=== PATIENT | male | born 1975 | race Caucasian/White ===

== ENCOUNTER 2020-06-28 00:53 | Emergency (ER) | payer BC ==
[2020-06-28] MEDS ORDERED: HYDROmorphone 1 MG/ML Syringe IVPUSH ONE (01:18)
[2020-06-28] MEDS ORDERED: Ondansetron 4 MG/2 ML SDV IVPUSH ONE (01:18)
--- NOTE | 2020-06-28 01:21 | EDM.PDOC ---
ED HPI GENERAL MEDICAL PROBLEM - General Chief Complaint: Flank Pain Stated Complaint: kidney stone issues Time Seen by Provider: 06/28/20 01:03 Source of Information: Reports: Patient History Limitations: Reports: No Limitations - History of Present Illness INITIAL COMMENTS - FREE TEXT/NARRATIVE: Mr. Sheikh is a pleasant 44-year-old gentleman with a past medical history significant for kidney stones, who now presents to the ED stating that he developed right flank pain radiating to his right groin around 12:30 yesterday afternoon, , 06/27/2020. He describes the character of the pain to his right flank as "constant" and states that the pain to his right groin comes and goes. He noticed gross hematuria around 13:00, but states that it seems to have improved since then. He has had nausea since 18:00 last evening, and states that he vomited once. He states that his current symptoms are very similar to prior kidney stones. Here in the ED, the patient's initial BP is found to be elevated at 159/105, otherwise, he is hemodynamically stable, afebrile, saturating 99% on room air. Prior to yesterday afternoon, the patient denies having a recent fever, chills, sore throat, ear pain, nasal or sinus congestion, cough, dyspnea, chest pain, palpitations, nausea, vomiting, constipation, diarrhea, abdominal pain, urinary symptoms, recent weight gain or weight loss, recent bloody bowel movements or black bowel movements, recent joint aches, headaches, or rashes. The patient's PCP is Dr. Ramos Padilla. He has not received an influenza vaccine this season, and declined an offer to receive one here in the ED. Right Flank Pain Score (Numeric/FACES): 7 - Related Data Allergies Allergy/AdvReac Type Severity Reaction Status Date / Time No Known Allergies Allergy Verified 06/28/20 01:12 Home Meds: Home Meds Acetaminophen/HYDROcodone [Rawson 325-5 MG] 1 - 2 tab PO Q6H PRN #20 tablet 06/28/20 [Rx] Ondansetron [Zofran ODT] 1 tab PO Q8H PRN #10 tab.dis 06/28/20 [Rx] Tamsulosin HCl [Flomax] 1 cap PO QAM PRN #10 cap.er.24h 06/28/20 [Rx] atorvaSTATin [Lipitor] 20 mg PO BEDTIME 06/28/20 [History] Past Medical History Cardiovascular History: Reports: High Cholesterol Genitourinary History: Reports: Renal Calculus Endocrine/Metabolic History: Reports: Obesity/BMI 30+ - Infectious Disease History Infectious Disease History: Reports: Chicken Pox, Shingles - Past Surgical History HEENT Surgical History: Reports: Oral Surgery (dental extractions) Male Surgical History: Reports: Kidney Stone Extraction (x 1), Ureteral Stent (x 1) Musculoskeletal Surgical History: Reports: Other (See Below) (Left hand tendon repair. 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 ED EXAM, RENAL/ - Physical Exam Exam: See Below Exam Limited By: No Limitations General Appearance: Alert, WD/WN, Mild Distress (appears uncomfortable) Eye Exam: Bilateral Eye: EOMI, Normal Inspection Ears: Normal External Exam, Hearing Grossly Normal Nose: Normal Inspection Throat/Mouth: Normal Inspection, Normal Lips, Normal Voice, No Airway Compromise Head: Atraumatic, Normocephalic Neck: Normal Inspection, Full Range of Motion Respiratory/Chest: No Respiratory Distress, Lungs Clear, Normal Breath Sounds, No Accessory Muscle Use Cardiovascular: Normal Peripheral Pulses, Regular Rate, Rhythm, No Edema, No Gallop, No JVD, No Murmur, No Rub GI/Abdominal: Normal Bowel Sounds, Soft, Non-Tender (including the right side), No Organomegaly, No Distention, No Abnormal Bruit, No Mass Back Exam: Normal Inspection, Full Range of Motion. No: CVA Tenderness (L), CVA Tenderness (R) Extremities: Normal Inspection, Normal Range of Motion, No Pedal Edema, Normal Capillary Refill Neurological: Alert, Oriented, Normal Cognition, No Motor/Sensory Deficits Psychiatric: Normal Affect Skin Exam: Warm, Dry, Intact, Normal Color, No Rash Course - Vital Signs Last Recorded V/S: Last Vital Signs Temp 36.2 C 06/28/20 00:59 Pulse 95 06/28/20 00:59 Resp 20 06/28/20 00:59 BP 159/105 H 06/28/20 00:59 Pulse Ox 99 06/28/20 00:59 - Orders/Labs/Meds Orders: Active Orders 24 hr Category Date Time Status Abdomen Pelvis wo Cont [CT] Stat Exams 06/28/20 01:17 Taken Sodium Chloride 0.9% [Normal Saline] 1,000 ml Med 06/28/20 01:30 Active IV ASDIRECTED Medication Orders Sodium Chloride (Normal Saline) 1,000 mls @ 150 mls/hr IV ASDIRECTED SWETA Last Admin: 06/28/20 01:31 Dose: 150 mls/hr Documented by: SKINNY Labs: Laboratory Tests 06/28/20 Range/Units 04:05 Urine Color Yellow (Yellow) Urine Appearance Clear (Clear) Urine pH 5.5 (5.0-8.0) Ur Specific [place] > or = 1.030 (1.005-1.030) Urine Protein Trace H (Negative) Urine Glucose (UA) Negative (Negative) Urine Ketones Negative (Negative) Urine Occult Blood 3+ H (Negative) Urine Nitrite Negative (Negative) Urine Bilirubin Negative (Negative) Urine Urobilinogen 0.2 (0.2-1.0) Ur Leukocyte Esterase Negative (Negative) Urine RBC 10-20 H (0-5) /hpf Urine WBC 0-5 (0-5) /hpf Ur Squamous Epith Cells 0-5 (0-5) /hpf Urine Bacteria Few (FEW) /hpf Urine Mucus Few (FEW) /hpf Meds: Medications Generic Name Dose Route Start Last Admin Trade Name Freq PRN Reason Stop Dose Admin Sodium Chloride 1,000 mls @ 150 mls/hr 06/28/20 01:30 06/28/20 01:31 Normal Saline IV 150 mls/hr ASDIRECTED SWETA Administration Discontinued Medications Generic Name Dose Route Start Last Admin Trade Name Freq PRN Reason Stop Dose Admin Hydromorphone HCl 1 mg 06/28/20 01:18 06/28/20 01:32 Dilaudid IVPUSH 06/28/20 01:19 1 mg ONETIME ONE Administration Ondansetron HCl 4 mg 06/28/20 01:18 06/28/20 01:31 Zofran IVPUSH 06/28/20 01:19 4 mg ONETIME ONE Administration - Re-Assessments/Exams Free Text/Narrative Re-Assessment/Exam: 06/28/20 01:19 Although the patient's physical exam is unremarkable, his history is consistent with a right ureterolith. I have therefore ordered a urinalysis by clean-catch and a CT of the abdomen and pelvis without contrast. In the meantime, the patient will be given IV Dilaudid, IV Zofran, and IV fluid. 06/28/20 02:15 CT of the abdomen and pelvis without contrast is read by [facility] as "Bilateral nephrolithiasis. Mild right hydronephrosis and hydroureter with an obstructing 3 mm stone in the UVJ." The patient has not yet provided a urine sample. 06/28/20 04:25 The patient's urinalysis is remarkable for 3+ occult blood with 10-20 RBCs, and is otherwise unremarkable. 06/28/20 04:31 Test results discussed with the patient. I will discharge him home with prescriptions for the Rawson, Zofran, and Flomax. He will be given a urine strainer. He should stay adequately hydrated. I will refer him to a Urologist in the event that he does not pass the stone within the next couple weeks, however, given its size and location, he will likely pass it fairly soon. Departure - Departure Time of Disposition: 04:32 Disposition: Home, Self-Care 01 Condition: Good Clinical Impression: Ureterolithiasis - Discharge Information *PRESCRIPTION DRUG MONITORING PROGRAM REVIEWED*: Not Applicable *COPY OF PRESCRIPTION DRUG MONITORING REPORT IN PATIENT FERNANDEZ: Not Applicable Prescriptions: Tamsulosin HCl [Flomax] 1 cap PO QAM PRN #10 cap.er.24h PRN Reason: Pain Acetaminophen/HYDROcodone [Rawson 325-5 MG] 1 - 2 tab PO Q6H PRN #20 tablet PRN Reason: Pain (Severe 7-10) Ondansetron [Zofran ODT] 1 tab PO Q8H PRN #10 tab.dis PRN Reason: Nausea/Vomiting Referrals: Ramos Padilla MD [Primary Care Provider] - Vu Crisostomo MD [Ordering Only Provider] - Forms: ED Department Discharge Additional Instructions: You were seen in the emergency room after developing right flank pain with radiation to your right groin, along with nausea and vomiting. Work-up in the ER included a urinalysis and a CT of your abdomen and pelvis. Your CT confirmed that you have a 3 mm stone in your distal right ureter, just at your bladder. You do not have an associated urinary tract infection. Based on the size and location of your stone, you will most likely pass it within the next few days. We recommend that you take [id number] ibuprofen, 3 tablets (600 mg) up to every 8 hours, with food, [id number]. You may take 1 to 2 tablets of the prescription opioid Rawson up to every 6 hours, as needed for pain not relieved by ibuprofen. If you take Rawson, do not drive or operate heavy machinery for 12 hours afterwards. Rawson may cause constipation, so consider taking a stool softener. Take 1 tablet of the anti-spasm medicine Flomax every morning, starting tomorrow morning, 06/29/2020, as needed for pain. You may dissolve 1 tablet of the anti-nausea medicine Zofran on your tongue up to every 8 hours, as needed for nausea/vomiting. Stay adequately hydrated. It does not really matter what type of fluid you drink. Strain all of your urine. If you capture the stone, take it to your doctor for analysis. If you continue to have pain after a week, please follow-up with the Urologist Lm Garcias, for further evaluation. If any other problems, please do not hesitate to return to the ER. Sepsis Event Note (ED) - Evaluation Sepsis Screening Result: No Definite Risk - Focused Exam Vital Signs: Vital Signs Temp Pulse Resp BP Pulse Ox 06/28/20 00:59 36.2 C 95 20 159/105 H 99 - My Orders Last 24 Hours: My Active Orders 06/28/20 01:17 Abdomen Pelvis wo Cont [CT] Stat 06/28/20 01:30 Sodium Chloride 0.9% [Normal Saline] 1,000 ml IV ASDIRECTED - Assessment/Plan Last 24 Hours: My Active Orders 06/28/20 01:17 Abdomen Pelvis wo Cont [CT] Stat 06/28/20 01:30 Sodium Chloride 0.9% [Normal Saline] 1,000 ml IV ASDIRECTED
[2020-06-28] MEDS ORDERED: Sodium Chloride 0.9% 1,000 ML IV SCH (01:30)
[2020-06-28] MEDS ORDERED: Tamsulosin 0.4 MG Cap.ER PO ONE (04:26)
--- NOTE | 2020-06-28 09:26 | CT ---
CT abdomen and pelvis Technique: Multiple axial sections were obtained from above the dome of the diaphragm inferiorly through the pubic symphysis. Intravenous and oral contrast was not utilized. Study has been performed as a ureteral stone protocol. Reconstructed coronal and sagittal images were obtained. Comparison: No prior abdominal imaging is available. Findings: Bilateral calcifications are seen within the right and left kidneys. Right kidney is slightly full within the midpole. Several cysts are noted within the right kidney. Right ureter is mildly prominent. Inflammatory change is noted around the right kidney compatible with the ureteral dilatation. Ureteral dilatation is caused by a distal right obstructing stone located at the UVJ measuring around 3 mm. No additional ureteral calculi are seen. Visualized lung bases show nothing acute. Noncontrast appearance of the liver and spleen appear within normal limits. Adrenal glands show no nodule. Pancreas is within normal limits. Aorta shows no aneurysm. Small scattered lymph nodes within the retroperitoneum are seen which are believed to be within normal limits. Gallbladder contains no calcified gallstones. No mesenteric abnormalities are seen. Appendix is seen which is normal. No pelvic mass or adenopathy is appreciated. Bone window settings were reviewed which show mild scattered degenerative change within the spine. Impression: 1. Slight fullness within the mid right kidney. Several cysts within the right kidney. Nonemergent renal ultrasound is recommended to further evaluate. 2. Mild nonobstructing calculi within both kidneys. 3. Dilated right ureter caused by a 3 mm obstructing stone located at the UVJ. Diagnostic code #9 I mostly agree with preliminary report from [facility], finalized on 06/28/20, 3:08 AM [employer]IEF [employer]ENDING [employer]ER
== END 2020-06-28 04:46 | disposition home or self-care (01) ==
LOC: JD.ED 00:53
DX: N20.2 Calculus of kidney with calculus of ureter (principal); E78.00 Pure hypercholesterolemia, unspecified; E66.9 Obesity, unspecified; Z87.891 Personal history of nicotine dependence; Z68.42 Body mass index [BMI] 45.0-49.9, adult; Z79.899 Other long term (current) drug therapy
CPT/HCPCS: 74176; 81001; 96374; 96375; 99284; A9270; J1170; J2405; J7030

== ENCOUNTER 2023-12-29 22:23 | Emergency (ER) | payer BC, OTHER ==
[2023-12-29] MEDS ORDERED: Sodium Chloride 0.9% 10 ML Syringe FLUSH PRN (23:46)
[2023-12-30] MEDS: Ketorolac 30 MG/ML SDV IVPUSH ONE (00:15)
[2023-12-30] MEDS: Sodium Chloride 0.9% 1,000 ML IV ONE (00:15)
[2023-12-30] MEDS: Prochlorperazine 10 MG/2 ML SDV IVPUSH ONE (00:15)
[2023-12-30] MEDS: Potassium Chloride 20 MEQ Tab.ER PO ONE (00:16)
[2023-12-30 00:19] LABS: BASOPHILS PERCENT AUTO 0.3 % (0.0-1.0); EOSINOPHILS ABSOLUTE AUTO 0.1 K/mm3 (0.0-0.4); HEMATOCRIT 41.1 % (42.0-52.0); HEMOGLOBIN 13.8 gm/dl (14.0-18.0); IMMATURE GRAN ABSOLUTE AUTO 0.03 K/mm3 (0.00-0.05); IMMATURE GRAN PERCENT AUTO 0.4 % (0.0-0.4); LYMPHOCYTES PERCENT AUTO 13.8 % (24.0-44.0); MEAN CORPUSCULAR HEMOGLOBIN 27.3 pg (28.0-32.0); MEAN CORPUSCULAR HGB CONC 33.6 g/dl (32.0-36.0); MEAN CORPUSCULAR VOLUME 81.2 fl (83.0-99.0); MEAN PLATELET VOLUME 9.5 fl (9.4-12.4); MONOCYTES ABSOLUTE AUTO 0.5 K/mm3 (0.0-0.8); MONOCYTES PERCENT AUTO 6.7 % (0.0-8.0); NEUTROPHILS ABSOLUTE AUTO 5.6 K/mm3 (1.8-7.7); NEUTROPHILS PERCENT AUTO 77.8 % (41.0-71.0); PLATELET COUNT,PLT 102 K/mm3 (150-400); RED BLOOD CELL COUNT 5.06 M/mm3 (4.52-5.90)
[2023-12-30 00:59] LABS: A/G RATIO 0.7 (1-2); BILIRUBIN TOTAL 2.3 mg/dL (0.2-1.0); BUN/CREATININE RATIO 13.8 (14-18); C-REACTIVE PROTEIN 17.85 mg/dL (<0.30); CALCIUM 9.4 mg/dL (8.5-10.1); CREATININE 1.3 mg/dL (0.7-1.3); MAGNESIUM 2.1 mg/dL (1.8-2.4); PROTEIN TOTAL,TP 7.4 g/dl (6.4-8.2)
[2023-12-30] MEDS: Diazepam 5 MG Tab PO ONE (01:02)
== END 2023-12-30 01:06 ==
LOC: JD.ED 22:23
DX: G44.209 Tension-type headache, unspecified, not intractable (principal); E78.00 Pure hypercholesterolemia, unspecified; E66.9 Obesity, unspecified; Z79.899 Other long term (current) drug therapy; Z68.37 Body mass index [BMI] 37.0-37.9, adult
CPT/HCPCS: 36415; 80053; 83735; 85025; 86140; 96361; 96374; 96375; 99284; A9270; J0780; J1885; J7030

== ENCOUNTER 2024-01-03 09:37 | Emergency (ER) | payer BC, OTHER ==
[2024-01-03] MEDS ORDERED: Sodium Chloride 0.9% 10 ML Syringe FLUSH PRN (09:57)
[2024-01-03] MEDS: Iopamidol 755 Mg/ML 100 ML Bottle IVPUSH ONE (10:06)
[2024-01-03] MEDS: Sodium Chloride 0.9% 45 ML IV SCH (10:06)
[2024-01-03 10:07] LABS: BASOPHILS PERCENT AUTO 0.3 % (0.0-1.0); EOSINOPHILS ABSOLUTE AUTO 0.1 K/mm3 (0.0-0.4); EOSINOPHILS PERCENT AUTO 0.9 % (0.0-6.0); HEMATOCRIT 38.7 % (42.0-52.0); HEMOGLOBIN 12.8 gm/dl (14.0-18.0); IMMATURE GRAN ABSOLUTE AUTO 0.13 K/mm3 (0.00-0.05); IMMATURE GRAN PERCENT AUTO 1.8 % (0.0-0.4); LYMPHOCYTES ABSOLUTE AUTO 0.8 K/mm3 (1.0-4.8); LYMPHOCYTES PERCENT AUTO 10.6 % (24.0-44.0); MEAN CORPUSCULAR HEMOGLOBIN 26.7 pg (28.0-32.0); MEAN CORPUSCULAR HGB CONC 33.1 g/dl (32.0-36.0); MEAN CORPUSCULAR VOLUME 80.8 fl (83.0-99.0); MEAN PLATELET VOLUME 9.8 fl (9.4-12.4); MONOCYTES ABSOLUTE AUTO 0.4 K/mm3 (0.0-0.8); MONOCYTES PERCENT AUTO 5.6 % (0.0-8.0); NEUTROPHILS PERCENT AUTO 80.8 % (41.0-71.0); PLATELET COUNT,PLT 144 K/mm3 (150-400); RED BLOOD CELL COUNT 4.79 M/mm3 (4.52-5.90); WHITE BLOOD CELL COUNT,WBC 7.38 K/mm3 (3.9-11.3)
[2024-01-03] MEDS: Sodium Chloride 0.9% 10 ML Syringe FLUSH PRN (10:07)
[2024-01-03 10:28] LABS: A/G RATIO 0.6 (1-2); ALBUMIN 2.7 g/dl (3.4-5.0); ANION GAP 12.7 (5-15); BILIRUBIN TOTAL 2.5 mg/dL (0.2-1.0); BUN/CREATININE RATIO 11.7 (14-18); CALCIUM 8.9 mg/dL (8.5-10.1); CREATININE 1.2 mg/dL (0.7-1.3); EST CRCL DRUG DOSING (CG) 81.92 mL/min; POTASSIUM,K 3.7 mEq/L (3.5-5.1); PROTEIN TOTAL,TP 7.2 g/dl (6.4-8.2)
[2024-01-03 10:46] LABS: APPEARANCE,URINE CLEAR (Clear); BILIRUBIN,URINE NEGATIVE (Negative); COLOR,URINE YELLOW (Yellow); GLUCOSE,URINE NEGATIVE (Negative); KETONES,URINE NEGATIVE (Negative); LEUKOCYTE ESTERASE,URINE NEGATIVE (Negative); NITRITE,URINE NEGATIVE (Negative); OCCULT BLOOD,URINE NEGATIVE (Negative); PROTEIN,URINE NEGATIVE (Negative)
[2024-01-03] MEDS: diphenhydrAMINE 50 MG/ML SDV IVPUSH ONE (10:53)
[2024-01-03] MEDS: Metoclopramide 10 MG/2 ML SDV IVPUSH ONE (10:56)
[2024-01-03] MEDS: Sodium Chloride 0.9% 1,000 ML IV ONE (10:58)
[2024-01-03] MEDS: Acetaminophen 325 MG Tab PO ONE (10:58)
[2024-01-03 12:43] LABS: CORONAVIRUS COVID-19 NAA NEGATIVE (NEGATIVE); INFLUENZA A NAA NEGATIVE (NEGATIVE); RESPIRATORY SYNCYTIAL VIR NAA NEGATIVE (NEGATIVE)
== END 2024-01-03 13:45 | disposition home or self-care (01) ==
LOC: JD.ED 09:37
DX: M54.2 Cervicalgia (principal); R51.9 Headache, unspecified; R05.9 Cough, unspecified; E78.00 Pure hypercholesterolemia, unspecified; E66.9 Obesity, unspecified; Z79.899 Other long term (current) drug therapy
CPT/HCPCS: 0241U; 36415; 70450; 70496; 70498; 71045; 80053; 81003; 82947; 85025; 93005; 96374; 96375; 99284; A9270; J1200; J2765; J3490; J7030; Q9967; 93010